=== PATIENT | male | born 1965 | race African-American/Black ===

== ENCOUNTER 2016-09-12 21:24 | Emergency (ER) | payer SELFPAY ==
[~2016-09-12] VITALS: Ht 172.7 cm; Wt 85.0 kg
[~2016-09-12 21:24] MED LIST: AMOX500T PO
[2016-09-12 21:27] VITALS: BP 151/92; PULSE 83; RESP 16; TEMP 98.7; O2SAT 98
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
[2016-09-12] MEDS ORDERED: REME15TA PO (23:04)
[2016-09-13] MEDS ORDERED: DICL75TA PO (00:20)
[2016-09-13] MEDS ORDERED: HYDR-3533 PO (00:20)
[2016-09-13] MEDS ORDERED: ACETAMINOPHEN/HYDROcodone 325 MG/5 MG TAB PO ONE (00:30)
[2016-09-13] MEDS ORDERED: IBUPROFEN 800 MG TAB PO ONE (00:30)
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
== END 2016-09-13 01:02 | disposition home or self-care (01) ==
LOC: NEPD 21:24
DX: S46.001A Unspecified injury of muscle(s) and tendon(s) of the rotator cuff of right shoulder, initial encounter (principal); M25.411 Effusion, right shoulder; F17.200 Nicotine dependence, unspecified, uncomplicated; Z86.59 Personal history of other mental and behavioral disorders; V19.3XXA Pedal cyclist (driver) (passenger) injured in unspecified nontraffic accident, initial encounter; Y93.55 Activity, bike riding
CPT/HCPCS: 73060; 99284

== ENCOUNTER 2017-02-23 19:04 | Emergency (ER) | payer SELFPAY ==
[~2017-02-23] VITALS: Ht 172.7 cm; Wt 67.0 kg
[~2017-02-23 19:04] MED LIST changes: -AMOX500T PO; +DICL75TA PO; +HYDR-3533 PO; +REME15TA PO
[2017-02-23 19:05] VITALS: BP 123/84; PULSE 110; RESP 18; TEMP 100.4; O2SAT 96
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
[2017-02-23] MEDS ORDERED: CLINDAMYCIN PHOS 600 MG/4 ML VIAL IM ONE (22:00)
[2017-02-23] MEDS ORDERED: CLIN150 PO (22:04)
[2017-02-23] MEDS ORDERED: DICL75TA PO (22:04)
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
== END 2017-02-23 23:08 | disposition home or self-care (01) ==
LOC: NEPK 19:04
DX: K04.7 Periapical abscess without sinus (principal); F17.200 Nicotine dependence, unspecified, uncomplicated
CPT/HCPCS: 70486; 96372